=== PATIENT | female | born 1950 ===

== ENCOUNTER → 2023-01-26 | Outpatient (CLI) | payer OTHER ==
[2023-01-26 09:17] LABS: Basophils # (auto) 0.1 10 ^3/uL (0-0.2); Basophils % (auto) 0.6 % (0.0-2.0); Eosinophils # (auto) 0.6 10 ^3/uL (0-0.8); Eosinophils % (auto) 4.9 % (0.0-7.0); Hematocrit 35.8 % (36.0-46.0); Hemoglobin 11.4 g/dL (12.2-16.2); Lymphocytes # (auto) 4.1 10 ^3/uL (0.4-5.4); Lymphocytes % (auto) 31.8 % (10.0-50.0); Mean Corpuscular Hemoglobin 29.3 pg (28.0-32.0); Mean Corpuscular Volume 91.8 fL (80.0-100.0); Monocytes # (auto) 0.6 10 ^3/uL (0-1.3); Monocytes % (auto) 4.7 % (0.0-12.0); Neutrophils # (auto) 7.4 10 ^3/uL (1.6-8.6); Nucleated Red Blood Cells % 0.2 %; Red Cell Distribution Width 15.5 % (11.8-14.3); White Blood Cell 12.9 10^3/uL (4.4-10.8)
[2023-01-26 09:50] LABS: Albumin 3.2 g/dL (3.4-5.0); Calcium 9.2 mg/dL (8.5-10.1); Potassium 4.2 mmol/L (3.5-5.1)
[2023-01-26 09:55] LABS: BUN/Creatinine Ratio 19.3 (10.0-20.0); Bilirubin, Total 0.3 mg/dL (0.2-1.0); Total Protein 8.5 g/dL (6.4-8.2)
== END | disposition home or self-care (01) ==
LOC: LAB 08:41
PROVIDERS: ATTEND Internal Medicine Endocrinology, Diabetes & Metabolism
DX: I12.9 Hypertensive chronic kidney disease with stage 1 through stage 4 chronic kidney disease, or unspecified chronic kidney disease (principal); E11.22 Type 2 diabetes mellitus with diabetic chronic kidney disease; N18.31 Chronic kidney disease, stage 3a; E11.69 Type 2 diabetes mellitus with other specified complication; E11.65 Type 2 diabetes mellitus with hyperglycemia; E03.9 Hypothyroidism, unspecified; M54.50 Low back pain, unspecified; D64.9 Anemia, unspecified; E66.01 Morbid (severe) obesity due to excess calories
CPT/HCPCS: 36415; 80053; 80061; 83036; 84439; 84443; 85025

== ENCOUNTER 2023-12-19 20:39 | Inpatient (IN) | payer OTHER ==
[~2023-12-19] VITALS: Ht 165.1 cm; Wt 128.4 kg
[2023-12-19 21:22] LABS: Basophils # (auto) 0.1 10 ^3/uL (0-0.2); Basophils % (auto) 0.8 % (0.0-2.0); Eosinophils # (auto) 0.5 10 ^3/uL (0-0.8); Eosinophils % (auto) 4.9 % (0.0-7.0); Hematocrit 39.2 % (36.0-46.0); Hemoglobin 12.6 g/dL (12.2-16.2); Lymphocytes # (auto) 3.4 10 ^3/uL (0.4-5.4); Lymphocytes % (auto) 31.2 % (10.0-50.0); Mean Corpuscular Hemoglobin 29.6 pg (28.0-32.0); Mean Corpuscular Volume 92.4 fL (80.0-100.0); Monocytes # (auto) 0.7 10 ^3/uL (0-1.3); Monocytes % (auto) 6.2 % (0.0-12.0); Neutrophils # (auto) 6.1 10 ^3/uL (1.6-8.6); Neutrophils % (auto) 56.9 % (37.0-80.0); Red Blood Cells 4.24 10^6/uL (4.0-5.20); Red Cell Distribution Width 15.6 % (11.8-14.3); White Blood Cell 10.8 10^3/uL (4.4-10.8)
[2023-12-19 21:37] LABS: INR 0.97 (0.9-1.15); Prothrombin Time 10.2 sec (9.3-11.8)
[2023-12-20 00:57] VITALS: PULSE 78; RESP 20; O2SAT 98
[2023-12-20] MEDS ORDERED: NITROGLYCERIN 0.4 MG SL TAB SL PRN (03:00)
[2023-12-20] MEDS ORDERED: DEXTROSE (50%) 50ML SYRG IV PRN ×2 (03:00→12:00)
[2023-12-20] MEDS ORDERED: ONDANSETRON HCL 4 MG/2 ML VIAL IV PRN (03:00)
[2023-12-20] MEDS ORDERED: MORPHINE SULFATE INJ 2 MG/ml SYRG IV PRN (03:00)
[2023-12-20 03:22] LABS: Chloride 107 mmol/L (98-107); Potassium 4.7 mmol/L (3.5-5.1); Sodium 136 mmol/L (136-145)
[2023-12-20 03:23] LABS: Anion Gap 9 (5-15); Calcium 9.9 mg/dL (8.7-10.4); Carbon Dioxide 20 mmol/L (20-30)
[2023-12-20 03:28] LABS: BUN/Creatinine Ratio 19.8 (10.0-20.0); Blood Urea Nitrogen 24 mg/dL (9-23); Glucose 246 mg/dL (74-106)
[2023-12-20] MEDS: LEVOTHYROXINE SODIUM 88 MCG TAB PO SCH (06:18)
[2023-12-20] MEDS: cloNIDine HCL 0.1 MG TAB PO SCH (06:19)
[2023-12-20] MEDS: ACCU-CHEK COMFORT CURVE STRIP VI SCH ×2 (06:20→17:00)
[2023-12-20] MEDS: InsuLIN REG 1unit/0.01ml Soln (100units/ml) SC SCH ×3 (06:21→22:27)
[2023-12-20] MEDS: MAGNESIUM SULFATE 1GM/100ML 100 ML IV SCH (06:46)
[2023-12-20 08:28] LABS: Basophils # (auto) 0.1 10 ^3/uL (0-0.2); Basophils % (auto) 0.8 % (0.0-2.0); Eosinophils # (auto) 0.6 10 ^3/uL (0-0.8); Eosinophils % (auto) 4.9 % (0.0-7.0); Hematocrit 36.9 % (36.0-46.0); Hemoglobin 11.7 g/dL (12.2-16.2); Lymphocytes # (auto) 3.8 10 ^3/uL (0.4-5.4); Mean Corpuscular Hemoglobin 29.1 pg (28.0-32.0); Mean Corpuscular Hgb Conc. 31.7 g/dL (32.0-36.0); Mean Corpuscular Volume 91.8 fL (80.0-100.0); Monocytes # (auto) 0.9 10 ^3/uL (0-1.3); Monocytes % (auto) 7.1 % (0.0-12.0); Neutrophils # (auto) 6.9 10 ^3/uL (1.6-8.6); Neutrophils % (auto) 56.2 % (37.0-80.0); Nucleated Red Blood Cells % 0.1 %; Red Blood Cells 4.03 10^6/uL (4.0-5.20); Red Cell Distribution Width 15.5 % (11.8-14.3); White Blood Cell 12.3 10^3/uL (4.4-10.8)
[2023-12-20 08:40] LABS: Triglycerides 116 mg/dL (< 150)
[2023-12-20 08:41] LABS: Alanine Aminotransferase 11 U/L (7-40); Albumin 3.9 g/dL (3.2-4.8); Alkaline Phosphatase 170 U/L (46-116); Anion Gap 5 (5-15); Aspartate Aminotransferase 11 U/L (13-40); BUN/Creatinine Ratio 19.2 (10.0-20.0); Blood Urea Nitrogen 20 mg/dL (9-23); Calcium 9.3 mg/dL (8.5-10.1); Carbon Dioxide 23 mmol/L (20-30); Chloride 109 mmol/L (98-107); Cholesterol 102 mg/dL (< 200); Glucose 194 mg/dL (74-106); LDL Cholesterol 48 mg/dL (< 100); LDL Cholesterol 50 mg/dL (< 100); Potassium 4.2 mmol/L (3.5-5.1); Sodium 137 mmol/L (136-145); Triglycerides 110 mg/dL (< 150)
[2023-12-20 08:42] LABS: Bilirubin, Total 0.5 mg/dL (0.2-1.0); Cholesterol 107 mg/dL (< 200); HDL Cholesterol 36 mg/dL (40-59); HDL Cholesterol 37 mg/dL (40-59); Total Protein 7.9 g/dL (5.7-8.2)
[2023-12-20 08:50] LABS: CRP High Sensitivity 1.85 mg/dL (<1.0)
[2023-12-20 09:17] LABS: Magnesium 1.5 mg/dL (1.6-2.6)
[2023-12-20] MEDS: ASPirin 81 mg TAB PO SCH (10:21)
[2023-12-20] MEDS: ALLOPURINOL 100 MG TAB PO SCH (10:22)
[2023-12-20] MEDS: amLODIPine BESYLATE 5 MG TAB PO SCH (10:22)
[2023-12-20] MEDS: ENOXAPARIN SOD 40 MG/0.4 ML SYRINGE SC SCH (10:23)
[2023-12-20 11:55] LABS: Urine Bacteria FEW /hpf (None Seen); Urine Blood Negative /uL (Negative); Urine Clarity Clear (Clear); Urine Color Colorless (Yellow); Urine Protein, UAD 1+ (Negative); Urine Specific Gravity 1.016 (1.001-1.035); Urine Urobilinogen Normal (Negative); Urine WBC 3 /hpf (0 - 5)
[2023-12-20] MEDS: SODIUM CHLORIDE 0.9% 500 ML IV ONE (12:00)
[2023-12-20 13:00] VITALS: BP 148/53; PULSE 81; RESP 17; TEMP 98.3; O2SAT 97
[2023-12-20] MEDS: ACETAMINOPHEN 325 MG TAB PO PRN (13:08)
[2023-12-20] MEDS: INSULIN LANTUS (GLARGINE) 1 /0.01ml (100units/ml) SC ONE (13:09)
[2023-12-20 13:21] VITALS: BP 148/53; PULSE 83; RESP 17; TEMP 98.3; O2SAT 97
[2023-12-20 17:00] VITALS: BP 128/68; PULSE 82; RESP 14; TEMP 98; O2SAT 92
[2023-12-20 20:00] VITALS: PULSE 108; PULSE 87; RESP 20; O2SAT 97
[2023-12-20 21:00] VITALS: BP 147/70; PULSE 87; RESP 20; TEMP 98; O2SAT 97
[2023-12-20] MEDS: ATORVASTATIN 20 MG TAB PO SCH (22:17)
[2023-12-21] VITALS (11 sets, daily range): BP systolic 123–176; BP diastolic 63–83; PULSE 80–97; RESP 12–20; TEMP 98.1–98.7; O2SAT 95–100
[2023-12-21] MEDS: INSULIN LANTUS (GLARGINE) 1 /0.01ml (100units/ml) SC SCH (05:52)
[2023-12-21 06:54] LABS: Basophils # (auto) 0.1 10 ^3/uL (0-0.2); Basophils % (auto) 0.7 % (0.0-2.0); Eosinophils # (auto) 0.5 10 ^3/uL (0-0.8); Eosinophils % (auto) 4.5 % (0.0-7.0); Hematocrit 34.9 % (36.0-46.0); Hemoglobin 11.4 g/dL (12.2-16.2); Lymphocytes # (auto) 3.5 10 ^3/uL (0.4-5.4); Lymphocytes % (auto) 31.1 % (10.0-50.0); Mean Corpuscular Hemoglobin 29.8 pg (28.0-32.0); Mean Corpuscular Hgb Conc. 32.5 g/dL (32.0-36.0); Mean Corpuscular Volume 91.6 fL (80.0-100.0); Monocytes # (auto) 0.8 10 ^3/uL (0-1.3); Monocytes % (auto) 6.9 % (0.0-12.0); Neutrophils # (auto) 6.4 10 ^3/uL (1.6-8.6); Neutrophils % (auto) 56.8 % (37.0-80.0); Nucleated Red Blood Cells % 0.1 %; Red Blood Cells 3.81 10^6/uL (4.0-5.20); Red Cell Distribution Width 15.6 % (11.8-14.3); White Blood Cell 11.2 10^3/uL (4.4-10.8)
[2023-12-21 07:05] LABS: Calcium 9.3 mg/dL (8.7-10.4); Chloride 108 mmol/L (98-107); Potassium 4.4 mmol/L (3.5-5.1); Sodium 135 mmol/L (136-145)
[2023-12-21 07:06] LABS: Anion Gap 5 (5-15); Carbon Dioxide 22 mmol/L (20-30)
[2023-12-21 07:11] LABS: BUN/Creatinine Ratio 19.5 (10.0-20.0); Blood Urea Nitrogen 26 mg/dL (9-23); Glucose 242 mg/dL (74-106)
[2023-12-21 07:12] LABS: Magnesium 1.5 mg/dL (1.6-2.6)
[2023-12-21] MEDS: LIDOCAINE 2%HCL (LOCAL ANESTH.) INJ 20ML MDV ONE ×2 (08:20→10:13)
[2023-12-21] MEDS: IODIXANOL 320MG/ML 100ML BTL IV ONE ×2 (08:20→10:13)
[2023-12-21] MEDS: fentaNYL CITRATE 100 MCG/2 ML VL ONE (10:13)
[2023-12-21] MEDS: VERAPAMIL 2.5MG/ML INJ 2ML VIAL IV ONE (10:13)
[2023-12-21] MEDS: ANGIOMAX 250 MG VIAL IV ONE (10:13)
[2023-12-21] MEDS: SODIUM CHL 0.9% 0 ML ONE (10:13)
[2023-12-21] MEDS: HEPARIN SODIUM (PORCINE) 5000 UNITS/ML 1ML VIAL ONE (10:13)
[2023-12-21] MEDS: MIDAZOLAM HCL 2MG/2ML 2ml VIAL (1mg/ml) ONE (10:13)
[2023-12-21] MEDS: hydrALAZINE HCL 20 MG/ML VL IV PRN (13:25)
[2023-12-21] MEDS ORDERED: ATOR20TA50 PO (13:35)
[2023-12-21] MEDS ORDERED: AMLO1TAB23 PO (13:35)
[2023-12-21] MEDS ORDERED: ASPI-325 PO (13:35)
[2023-12-21] MEDS: MAGNESIUM SULFATE 1GM/100ML 100 ML IV SCH (14:13)
[2023-12-21] MEDS ORDERED: LISI-275 PO (15:01)
[2023-12-21] MEDS ORDERED: MET25T PO (15:01)
[2023-12-21] MEDS: METOPROLOL TARTRATE 25 MG TAB PO ONE (16:06)
[2023-12-21] MEDS ORDERED: ATORVASTATIN 20 MG TAB PO SCH (22:00)
[2023-12-21] MEDS ORDERED: METOPROLOL TARTRATE 25 MG TAB PO SCH (22:00)
[2023-12-21] MEDS ORDERED: INSULIN LANTUS (GLARGINE) 1 /0.01ml (100units/ml) SC SCH (22:00)
[2023-12-22 08:54] LABS: Hepatitis B Surface Antigen Negative (Negative)
[2023-12-22 09:16] LABS: Hepatitis C Antibody Negative (Negative)
[2023-12-22] MEDS ORDERED: LISINOPRIL 5 MG TAB PO SCH (10:00)
== END 2023-12-21 19:59 | disposition home or self-care (01) | DRG 286 ==
LOC: EDBD 20:39 → ER 20:39 → TELE 12-20 02:54 → TELE-CENTR 12-20 11:00
PROVIDERS: ADMIT Internal Medicine; ATTEND Internal Medicine
PROC: 4A023N7 Measurement of Cardiac Sampling and Pressure, Left Heart, Percutaneous Approach (ICD-10-PCS; principal; 2023-12-21)
PROC: B211YZZ Fluoroscopy of Multiple Coronary Arteries using Other Contrast (ICD-10-PCS; 2023-12-21)
DX: I25.110 Atherosclerotic heart disease of native coronary artery with unstable angina pectoris (principal); I50.31 Acute diastolic (congestive) heart failure; N17.0 Acute kidney failure with tubular necrosis; I16.1 Hypertensive emergency; R65.10 Systemic inflammatory response syndrome (SIRS) of non-infectious origin without acute organ dysfunction; I13.0 Hypertensive heart and chronic kidney disease with heart failure and stage 1 through stage 4 chronic kidney disease, or unspecified chronic kidney disease; Z68.42 Body mass index [BMI] 45.0-49.9, adult; E66.01 Morbid (severe) obesity due to excess calories; E83.42 Hypomagnesemia; E11.22 Type 2 diabetes mellitus with diabetic chronic kidney disease; E78.5 Hyperlipidemia, unspecified; N18.9 Chronic kidney disease, unspecified; E03.9 Hypothyroidism, unspecified; J45.909 Unspecified asthma, uncomplicated; Z86.718 Personal history of other venous thrombosis and embolism; Z79.4 Long term (current) use of insulin; Z90.710 Acquired absence of both cervix and uterus
CPT/HCPCS: 36415; 71045; 80048; 80053; 80061; 81001; 82962; 83036; 83735; 83880; 84439; 84443; 84484; 85025; 85379; 85610; 85730; 86141; 86803; 86850; 86900; 86901; 87340; 93005; 93306; 93458; 93970; 99152; G0378; J1815; J2250; Q9967

== ENCOUNTER 2025-01-16 01:26 | Emergency (ER) | payer MEDICARE, OTHER ==
[~2025-01-16] VITALS: Ht 165.1 cm; Wt 127.0 kg
[~2025-01-16 01:26] MED LIST: AMLO1TAB23 PO; ASPI-325 PO; ATOR20TA50 PO; LISI-275 PO; MET25T PO
--- NOTE | 2025-01-16 01:42 | ED.PDOC ---
History of Present Illness HPI Comments 74-year-old female presents with a chief complaint of shakiness. Patient states that she was feeling very shaky and decided to call 911. Per EMS, patients blood sugar was 29 and they gave her oral glucose. Patient mentions that she took her medications, but states that she did not eat today. No other symptoms or modifying factors present at this time. Time Seen by MD: 01:40 Reviewed Notes: Medications, Allergies Allergies: Coded Allergies: NO KNOWN ALLERGIES (Unverified , 12/19/23) Home Meds Active Scripts Metoprolol Tartrate (Lopressor) 25 Mg Tb, 12.5 MG PO BID for 30 Days, #30 TAB 1 Refill Prov:HEATHER WHITE [facility] 12/21/23 Lisinopril (Lisinopril) 5 Mg Tab, 5 MG PO DAILY for 30 Days, #30 TAB 1 Refill Prov:HEATHER WHITE [facility] 12/21/23 Atorvastatin Calcium (ATORVASTATIN CALCIUM) 20 Mg Tab, 40 MG PO HS for 30 Days, #60 TAB 1 Refill Prov:HEATHER WHITE [facility] 12/21/23 Aspirin (Aspirin Low Dose) 81 Mg Tab, 81 MG PO DAILY for 30 Days, #30 TAB 2 Refills Prov:HEATHER WHITE [facility] 12/21/23 Amlodipine Besylate (Amlodipine Besylate) 10 Mg Tab, 1 TAB PO DAILY for 30 Days, #30 TAB 2 Refills Prov:HEATHER WHITE [facility] 12/21/23 Information Source: Patient, Emergency Med Personnel Mode of Arrival: EMS Severity: Moderate Timing: Hours Duration: Since onset Prehospital treatment: Unix Analyst, Treatment (Oral Glucose) Past Medical History PAST MEDICAL HISTORY: Asthma, DM, HTN Surgical History: Denies all surgeries 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 Family History Family History: Reviewed,noncontributory to illness Social History Smoker: Non-Smoker Alcohol: Denies ETOH Use Drugs: Denies Drug Use Lives In: Home Constitutional: reports: others (SHAKINESS); denies: chills, diaphoresis, fatigue, fever, malaise, sweats, weakness EENTM: denies: blurred vision, double vision, ear bleeding, ear discharge, ear drainage, ear pain, ear ringing, eye pain, eye redness, hearing loss, mouth pain, mouth swelling, nasal discharge, nose bleeding, nose congestion, nose pain, photophobia, tearing, throat pain, throat swelling, voice changes, others Respiratory: denies: cough, hemoptysis, orthopnea, SOB at rest, shortness of breath, SOB with excertion, stridor, wheezing, others Cardiovascular: denies: chest pain, dizzy spells, diaphoresis, Dyspnea on exertion, edema, irregular heart beat, left arm pain, lightheadedness, palpitations, PND, syncope, others Gastrointestinal: denies: abdomen distended, abdominal pain, blood streaked bowels, constipated, diarrhea, dysphagia, difficulty swallowing, hematemesis, melena, nausea, poor appetite, poor fluid intake, rectal bleeding, rectal pain, vomiting, others Genitourinary: denies: abnormal vagina bleeding, burning, dyspareunia, dysuria, flank pain, frequency, hematuria, incontinence, pain, , vagina discharge, urgency, others Neurological: denies: dizziness, fainting, headache, left sided numbness, left sided weakness, numbness, paresthesia, pre-existing deficit, right sided numbness, right sided weakness, seizure, speech problems, tingling, tremors, weakness, others Musculoskeletal: denies: back pain, gout, joint pain, joint swelling, muscle pain, muscle stiffness, neck pain, others Integumetry: denies: bruises, change in color, change in hair/nails, dryness, laceration, lesions, lumps, rash, wounds, others Allergic/Immunocompromised: denies: Difficulty Healing, Frequent Infections, H terence, Itching, others Hematologic/Lymphatic: denies: anemia, blood clots, easy bleeding, easy bruising, swollen glands, others Endocrine: denies: excessive hunger, excessive sweating, excessive thirst, excessive urination, flushing, intolerance to cold, intolerance to heat, unexplained weight gain, unexplained weight loss, others Psychiatric: denies: anxiety, bipolar disorder, depression, hopeless, panic disorder, schizophrenia, sleepless, suicidal, others All Other Systems: Reviewed and Negative Physical Exam General Appearance: No Apparent Distress, Normal HEENT: Normal ENT Inspection, Pharynx Normal, TMs Normal Neck: Full Range of Motion, Non-Tender, Normal, Normal Inspection Respiratory: Chest Non-Tender, Lungs Clear, No Accessory Muscle Use, No Respiratory Distress, Normal Breath Sounds Cardiovascular: No Edema, No JVD, No Murmur, No Gallop, Normal Peripheral Pulses, Regular Rate/Rhythm Breast Exam: Deferred Gastrointestinal: No Organomegaly, Non Tender, No Pulsatile Mass, Normal Bowel Sounds, Soft Genitalia: Deferred Pelvic: Deferred Rectal: Deferred Extremities: No calf tenderness, Normal capillary refill, Normal inspection, Normal range of motion, Non-tender, No pedal edema Musculoskeletal : Apperance: Normal Neurologic: Alert, dramatic coach II-XII nml as Tested, No Motor Deficits, Normal Affect, Normal Mood, No Sensory Deficits Cerebellar Function: Normal Reflexes: Normal Skin: Dry, Normal Color, Warm Lymphatic: No Adenopathy Was a procedure done? Was a procedure done?: No Differential Dx Considerations may include: Medication reaction, viral syndrome, electrolyte abnormality X-Ray, Labs, Meds, VS Vital Signs Date Time Temp Pulse Resp B/P (MAP) Pulse Ox O2 Delivery O2 Flow Rate FiO2 01/16/25 03:09 105 20 96 Room Air* 0 21 01/16/25 03:00 98.5 105 20 157/92 (113) 96 98.5 01/16/25 01:48 98.5 111 18 117/113 (114) 96 98.5 Lab Test 01/16/25 03:02 01/16/25 02:54 01/16/25 02:36 01/16/25 02:15 Range/Units Troponin I High Sensitivity 13 12 </=34 ng/L POC Glucose 205 H 70-106 mg/dl Urine Color Colorless Yellow Urine Clarity Clear Clear Urine pH 5.5 5.0-9.0 Urine Specific [place] 1.009 1.001-1.035 Urine Protein 1+ H Negative Urine Ketones Negative Negative Urine Blood Negative Negative /uL Urine Nitrite Negative Negative Urine Bilirubin Negative Negative Urine Urobilinogen Normal Negative mg/dL Urine Leukocyte Esterase Negative Negative /uL Urine RBC <1 0 - 4 /hpf Urine Microscopic WBC 1 0-5 /HPF Urine Squamous Epithelial Cells Few <5 /hpf Urine Bacteria None seen None Seen /hpf Urine Glucose Normal Normal mg/dL White Blood Count 11.3 H 4.4-10.8 10^3/uL Red Blood Count 4.01 4.0-5.20 10^6/uL Hemoglobin 11.7 L 12.2-16.2 g/dL Hematocrit 36.5 36.0-46.0 % Mean Corpuscular Volume 91.1 80.0-100.0 fL Mean Corpuscular Hemoglobin 29.2 28.0-32.0 pg Mean Corpuscular Hemoglobin Concent 32.1 32.0-36.0 g/dL Red Cell Distribution Width 17.7 H 11.8-14.3 % Platelet Count 303 140-450 10^3/uL Mean Platelet Volume 9.0 6.9-10.8 fL Neutrophils (%) (Auto) 71.0 37.0-80.0 % Lymphocytes (%) (Auto) 17.0 10.0-50.0 % Monocytes (%) (Auto) 7.1 0.0-12.0 % Eosinophils (%) (Auto) 4.1 0.0-7.0 % Basophils (%) (Auto) 0.8 0.0-2.0 % Neutrophils # (Auto) 8.0 1.6-8.6 10 ^3/uL Lymphocytes # (Auto) 1.9 0.4-5.4 10 ^3/uL Monocytes # (Auto) 0.8 0-1.3 10 ^3/uL Eosinophils # (Auto) 0.5 0-0.8 10 ^3/uL Basophils # (Auto) 0.1 0-0.2 10 ^3/uL Nucleated Red Blood Cells 0.0 % Sodium Level 139 136-145 mmol/L Potassium Level 4.9 3.5-5.1 mmol/L Chloride Level 111 H 98-107 mmol/L Carbon Dioxide Level 21 20-31 mmol/L Anion Gap 7 5-15 Blood Urea Nitrogen 26 H 9-23 mg/dL Creatinine 1.35 H 0.550-1.02 mg/dL Glomerular Filtration Rate Calc 41 >90 mL/min BUN/Creatinine Ratio 19.3 10.0-20.0 Serum Glucose 191 H 74-106 mg/dL Calcium Level 9.7 8.7-10.4 mg/dL B-Type Natriuretic Peptide 43.42 0-100 pg/mL Current Medications Medications (Trade) Dose Ordered Sig/Jairon Route Start Time Stop Time Status Last Admin Acetaminophen (Tylenol Tablet) 650 mg ONCE ONCE PO 01/16/25 04:00 01/16/25 04:01 DC 01/16/25 04:03 Time of 1ST Reevaluation: 02:10 Reevaluation 1ST: Unchanged Patient Education/Counseling: Diagnosis, Treatment Family Education/Counseling: No Family Present Departure 1 Departure Time of Disposition: 04:15 (Patient had a hypoglycemic episode in the setting of taking her medication without eating. Patient is now hemodynamically stable feeling well and like to go home. We will discharge patient home with outpatient follow up) Impression: Primary Impression: Hypoglycemia Disposition: 01 HOME / SELF CARE / HOMELESS Condition: Stable Additional Instructions: It is important to take your medications regularly and eat meals with them. You should follow up with the regular doctor this week. Discharged With: Self Critical Care Note Critical Care Time?: No Stability Stability form required: No Heart Score Heart Score: Heart Score Response (Comments) Value History N/A 0 EKG N/A 0 Age N/A 0 Risk Factors N/A 0 Troponin N/A 0 Total 0 I personally scribed for GALLITO JONES MD ([email or web address]) on 01/16/25 at 01:42. Electronically submitted by Tyree Montoya ([email or web address]). GALLITO JONES MD Jan 16, 2025 01:42
[2025-01-16 02:41] LABS: Basophils # (auto) 0.1 10 ^3/uL (0-0.2); Basophils % (auto) 0.8 % (0.0-2.0); Eosinophils # (auto) 0.5 10 ^3/uL (0-0.8); Eosinophils % (auto) 4.1 % (0.0-7.0); Hematocrit 36.5 % (36.0-46.0); Hemoglobin 11.7 g/dL (12.2-16.2); Lymphocytes # (auto) 1.9 10 ^3/uL (0.4-5.4); Mean Corpuscular Hemoglobin 29.2 pg (28.0-32.0); Mean Corpuscular Hgb Conc. 32.1 g/dL (32.0-36.0); Mean Corpuscular Volume 91.1 fL (80.0-100.0); Monocytes # (auto) 0.8 10 ^3/uL (0-1.3); Monocytes % (auto) 7.1 % (0.0-12.0); Platelet Count (auto) 303 10^3/uL (140-450); Red Blood Cells 4.01 10^6/uL (4.0-5.20); Red Cell Distribution Width 17.7 % (11.8-14.3); White Blood Cell 11.3 10^3/uL (4.4-10.8)
--- NOTE | 2025-01-16 02:43 | DVH ---
CHEST RADIOGRAPH Indication: hypoglycemia Technique: Single frontal view of the chest was obtained Comparison: XY CHEST PORTABLE on DOS: 12/19/23 IMPRESSION: The heart is moderately enlarged. No sizable effusion or pneumothorax. Moderate pulmonary vascular c ongestion.
[2025-01-16 02:45] LABS: Potassium 4.9 mmol/L (3.5-5.1); Sodium 139 mmol/L (136-145)
[2025-01-16 02:46] LABS: Anion Gap 7 (5-15); Carbon Dioxide 21 mmol/L (20-31)
[2025-01-16 02:47] LABS: Calcium 9.7 mg/dL (8.7-10.4)
[2025-01-16 02:51] LABS: BUN/Creatinine Ratio 19.3 (10.0-20.0)
[2025-01-16 02:57] LABS: Urine Bacteria None Seen /hpf (None Seen)
[2025-01-16 02:57] LABS: Blood Urea Nitrogen 26 mg/dL (9-23); Chloride 111 mmol/L (98-107); Glucose 191 mg/dL (74-106)
[2025-01-16 03:06] LABS: Urine Blood Negative /uL (Negative); Urine Clarity Clear (Clear); Urine Color Colorless (Yellow); Urine Protein, UAD 1+ (Negative); Urine Specific Gravity 1.009 (1.001-1.035); Urine Squamous Epithelial Cell FEW /hpf (<5); Urine Urobilinogen Normal (Negative); Urine WBC 1 /HPF (0-5); Urine pH 5.5 (5.0-9.0)
[2025-01-16 03:09] VITALS: PULSE 105; RESP 20; O2SAT 96
[2025-01-16] MEDS: ACETAMINOPHEN 325 MG TAB PO ONE (04:03)
[2025-01-16 05:06] VITALS: BP 147/73; PULSE 87; RESP 16; TEMP 98; O2SAT 96
== END 2025-01-16 05:07 | disposition home or self-care (01) ==
LOC: ER 01:26 → EDBD 01:26 → ER 05:07
DX: E11.649 Type 2 diabetes mellitus with hypoglycemia without coma (principal); I10 Essential (primary) hypertension; J45.909 Unspecified asthma, uncomplicated; Z79.82 Long term (current) use of aspirin; Z79.899 Other long term (current) drug therapy
CPT/HCPCS: 36415; 71045; 80048; 81001; 82947; 82962; 83880; 84484; 85025

== ENCOUNTER 2025-09-14 11:48 | Emergency (ER) | payer OTHER ==
[~2025-09-14] VITALS: Ht 165.1 cm; Wt 136.0 kg
--- NOTE | 2025-09-14 12:18 | ECG ---
[facility] Test Date: 2025-09-14 Test Time: 11:53:59 Pat Name: GILBERTO MACHADO Department: [facility] ED Room: Gender: F Manager Of Corporate: francoise : 1950 Requested By: EMERGENCY EMERGENCY Order Number: [id number] Reading MD: Gilson Hendrix Measurements Intervals [place] Rate: 99 P: 59 AK: 170 QRS: -22 QRSD: 107 T: 53 QT: 369 QTc: 474 Interpretive Statements Sinus rhythm Borderline left axis deviation Electronically Signed On 09-19-2025 17:34:09 PST by Gilson Hendrix Please click the below link to view image of tracing.
--- NOTE | 2025-09-14 12:47 | ED.PDOC ---
History of present illness HPI Comments 74 y.o female with PMHx of DM and HTN, presents to the ED via EMS for an evaluation of AMS. EMS reports patient lives with son who is her primary caregiver. Son reported hearing weird noises coming from patient's room and when he went up to check on her, he noticed she was altered. Patient has had a decreased appetite and dark/foul/cloudy urine per son. EMS noted BG of 50 on scene, gave 2 tube or oral glucose which brought BG to 107 but went back down to 57 upon arrival. Patient is able to state her name and mentions taking insulin with compliance to all medication, however no further information obtained from her. Patient is bedbound as she has a bad knee and son assists her from bed to wheelchair. No other symptoms reported at this time. Chief Complaint: Hypoglycemia Time Seen by MD: 12:05 History of present illness: Nurses Notes, Intelligence Engineer Notes, Medications, Allergies Allergies: Coded Allergies: NO KNOWN ALLERGIES (Unverified , 12/19/23) Home Meds Active Scripts Metoprolol Tartrate (Lopressor) 25 Mg Tb, 12.5 MG PO BID for 30 Days, #30 TAB 1 Refill Prov:HEATHER WHITE RESIDENT 12/21/23 Lisinopril (Lisinopril) 5 Mg Tab, 5 MG PO DAILY for 30 Days, #30 TAB 1 Refill Prov:HEATHER WHITE RESIDENT 12/21/23 Atorvastatin Calcium (ATORVASTATIN CALCIUM) 20 Mg Tab, 40 MG PO HS for 30 Days, #60 TAB 1 Refill Prov:HEATHER WHITE RESIDENT 12/21/23 Aspirin (Aspirin Low Dose) 81 Mg Tab, 81 MG PO DAILY for 30 Days, #30 TAB 2 Refills Prov:HEATHER WHITE RESIDENT 12/21/23 Amlodipine Besylate (Amlodipine Besylate) 10 Mg Tab, 1 TAB PO DAILY for 30 Days, #30 TAB 2 Refills Prov:HEATHER WHITE RESIDENT 12/21/23 Information Source: Emergency Med Personnel Mode of Arrival: EMS Timing: Hours Duration: Since onset Prehospital treatment: Accucheck (50 with 107 repeat s/p glucose given ), Treatment (2 tube oral glucose ) [place]: Confusion Symptoms: Confusion, Eating poorly History of: Diabetes, Insulin use Modifying factors: Nothing Associated signs and symptoms: Other Past Medical History PAST MEDICAL HISTORY: Asthma, DM, HTN Surgical History: Denies all surgeries 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 Family History Family History: Reviewed,noncontributory to illness Social History Smoker: Non-Smoker Alcohol: Denies ETOH Use Drugs: Denies Drug Use Lives In: Home Unable to Obtain due to: Altered Mental Status Physical Exam General Appearance: Moderate Distress, Obese HEENT: Normal ENT Inspection, Pharynx Normal, TMs Normal Neck: Full Range of Motion, Non-Tender, Normal, Normal Inspection Respiratory: Chest Non-Tender, Lungs Clear, No Accessory Muscle Use, No Respiratory Distress, Normal Breath Sounds Cardiovascular: No Edema, No JVD, No Murmur, No Gallop, Normal Peripheral Pulses, Regular Rate/Rhythm Breast Exam: Deferred Gastrointestinal: No Organomegaly, Non Tender, No Pulsatile Mass, Normal Bowel Sounds, Soft Genitalia: Deferred Pelvic: Deferred Rectal: Deferred Extremities: No calf tenderness Musculoskeletal : Apperance: Normal Neurologic: Alert Cerebellar Function: NOT DONE Reflexes: NOT DONE Skin: Normal Color Peripheral Pulses: 3+ Radial (R), 3+ Radial (L) Lymphatic: No Adenopathy Was a procedure done? Was a procedure done?: No Differential Diagnosis (DM) Differential Diagnosis: Dehydration, Electrolyte Abnormality, Hypoglycemia, UTI X-Ray, Labs, Meds, VS Vital Signs Date Time Temp Pulse Resp B/P (MAP) Pulse Ox O2 Delivery O2 Flow Rate FiO2 09/14/25 13:04 87 20 97 Room Air* 0 21 09/14/25 13:04 98.3 87 20 149/65 (93) 97 98.3 09/14/25 12: 97.9 104 16 118/82 99 97.9 09/14/25 11:53 99 Lab Test 09/14/25 14:22 09/14/25 14:00 Range/Units Urine Color Light-yellow Yellow Urine Clarity Clear Clear Urine pH 5.5 5.0-9.0 Urine Specific [place] 1.013 1.001-1.035 Urine Protein Trace H Negative Urine Ketones Negative Negative Urine Blood Negative Negative /uL Urine Nitrite Negative Negative Urine Bilirubin Negative Negative Urine Urobilinogen Normal Negative mg/dL Urine Leukocyte Esterase Negative Negative /uL Urine RBC None seen 0 - 4 /hpf Urine Microscopic WBC 1 0-5 /HPF Urine Squamous Epithelial Cells Few <5 /hpf Urine Bacteria None seen None Seen /hpf Urine Glucose Normal Normal mg/dL White Blood Count 10.0 4.4-10.8 10^3/uL Red Blood Count 3.89 L 4.0-5.20 10^6/uL Hemoglobin 11.5 L 12.2-16.2 g/dL Hematocrit 35.4 L 36.0-46.0 % Mean Corpuscular Volume 91.0 80.0-100.0 fL Mean Corpuscular Hemoglobin 29.6 28.0-32.0 pg Mean Corpuscular Hemoglobin Concent 32.5 32.0-36.0 g/dL Red Cell Distribution Width 14.1 11.8-14.3 % Platelet Count 288 140-450 10^3/uL Mean Platelet Volume 8.0 6.9-10.8 fL Neutrophils (%) (Auto) 69.1 37.0-80.0 % Lymphocytes (%) (Auto) 21.4 10.0-50.0 % Monocytes (%) (Auto) 7.1 0.0-12.0 % Eosinophils (%) (Auto) 1.7 0.0-7.0 % Basophils (%) (Auto) 0.7 0.0-2.0 % Neutrophils # (Auto) 6.9 1.6-8.6 10 ^3/uL Lymphocytes # (Auto) 2.1 0.4-5.4 10 ^3/uL Monocytes # (Auto) 0.7 0-1.3 10 ^3/uL Eosinophils # (Auto) 0.2 0-0.8 10 ^3/uL Basophils # (Auto) 0.1 0-0.2 10 ^3/uL Nucleated Red Blood Cells 0.0 % Sodium Level 141 136-145 mmol/L Potassium Level 5.1 3.5-5.1 mmol/L Chloride Level 110 H 98-107 mmol/L Carbon Dioxide Level 20 20-31 mmol/L Anion Gap 11 5-15 Blood Urea Nitrogen 31 H 9-23 mg/dL Creatinine 1.42 H 0.550-1.02 mg/dL Glomerular Filtration Rate Calc 39 >90 mL/min BUN/Creatinine Ratio 21.8 H 10.0-20.0 Serum Glucose 118 H 74-106 mg/dL Calcium Level 9.0 8.7-10.4 mg/dL Troponin I High Sensitivity 8 </=34 ng/L Current Medications Medications (Trade) Dose Ordered Sig/Jairon Route Start Time Stop Time Status Last Admin Ceftriaxone Sodium 50 ml @ 100 mls/hr ONCE ONCE IV 09/14/25 16:00 09/14/25 16:29 09/14/25 16:13 Patient alert. Saturation pristine on room air. She is obese. History of hypertension. History of diabetes. She has been eating in the last few days. Has been taking her insulin. Possible urosepsis. WBC within normal limits. Sugar normalized. No acute process. No leg swelling. No shortness a breath. No chest pain. No head injury. Explained to the patient. Was told to follow up with her primary care physician. Was told to come back if there is any problem. Time of 1ST Reevaluation: 12:42 Reevaluation 1ST: Unchanged Patient Education/Counseling: Other (A&O x 2 ) Family Education/Counseling: No Family Present SEPSIS Sepsis Screen Date sepsis recognized/suspect: Sep 14, 2025 Time Sepsis recognized/suspect: 1150 Recent Procedure: No On Antibiotic Therapy: No Respiratory Rate >20: No Heart Rate >90: Yes Temp<36 C (96.8 F) or >38.3 C: No SBP <90 or MAP <65 mmHG: No New Acute Mental Status Change: No Is the patient on CPAP, BIPAP,: No Physician Orders Chest Portable (09/14/25 12:55) Insert/Manage Urinary Catheter QSHIFT (09/14/25 14:31) Urine Bacterial Culture (09/14/25 14:31) Ceftriaxone 1gm/50ml (Rocephin) (09/14/25 16:00) Vital Signs Date Time Temp Pulse Resp B/P (MAP) Pulse Ox O2 Delivery O2 Flow Rate FiO2 09/14/25 13:04 87 20 97 Room Air* 0 21 09/14/25 13:04 98.3 87 20 149/65 (93) 97 98.3 09/14/25 12: 97.9 104 16 118/82 99 97.9 09/14/25 11:53 99 Laboratory Tests Test 09/14/25 14:00 White Blood Count 10.0 10^3/uL (4.4-10.8) Medications Medications Dose Ordered Sig/Jairon Route Start Time Stop Time Status Last Admin Dose Admin Ceftriaxone Sodium 50 ml @ 100 mls/hr ONCE ONCE IV 09/14/25 16:00 09/14/25 16:29 09/14/25 16:13 Departure 1 Departure Time of Disposition: 12:58 Impression: Primary Impression: Uncontrolled diabetes mellitus Qualified Codes: E13.649 - Other specified diabetes mellitus with hypoglycemia without coma Additional Impression: Indwelling urinary catheter present Disposition: HOME / SELF CARE / HOMELESS Condition: Good e-Prescriptions Nitrofurantoin Monohydrate Mac (Macrobid) 100 Mg Cap 100 MG PO BID for 5 Days, #10 CAP Prov: TRISTAN REIS MD 09/14/25 Discharged With: Self Critical Care Note Critical Care Time?: No Stability Stability form required: No I personally scribed for TRISTAN REIS MD ([email or web address]) on 09/14/25 at 12:47. Electronically submitted by Ciara Blanc ([facility]). TRISTAN REIS MD Sep 14, 2025 12:47
[2025-09-14 13:04] VITALS: PULSE 87; RESP 20; O2SAT 97
--- NOTE | 2025-09-14 14:04 | DVH ---
EXAM: XY CHEST PORTABLE CLINICAL HISTORY: sob TECHNIQUE: Single AP view of the chest WID: COMPARISON: XY CHEST PORTABLE on DOS: 01/16/25 FINDINGS: Lines and tubes: None Chest: Cardiomegaly with pulmonary vascular congestion. Calcified plaque projects over the aortic arch. No pleural effusion, pneumothorax, or consolidation. The osseous structures are grossly intact. IMPRESSION: 1. Cardiomegaly and pulmonary vascular congestion.
[2025-09-14 14:09] LABS: Hematocrit 35.4 % (36.0-46.0); Hemoglobin 11.5 g/dL (12.2-16.2); Mean Corpuscular Hemoglobin 29.6 pg (28.0-32.0); Mean Corpuscular Volume 91.0 fL (80.0-100.0); Nucleated Red Blood Cells % 0.0 %
[2025-09-14 14:22] LABS: Potassium 5.1 mmol/L (3.5-5.1); Sodium 141 mmol/L (136-145)
[2025-09-14 14:23] LABS: Anion Gap 11 (5-15)
[2025-09-14 14:24] LABS: Calcium 9.0 mg/dL (8.7-10.4); Carbon Dioxide 20 mmol/L (20-31); Chloride 110 mmol/L (98-107)
[2025-09-14 14:28] LABS: BUN/Creatinine Ratio 21.8 (10.0-20.0)
[2025-09-14 14:34] LABS: Blood Urea Nitrogen 31 mg/dL (9-23); Glucose 118 mg/dL (74-106)
[2025-09-14 15:06] LABS: Urine Protein, UAD TRACE (Negative)
[2025-09-14] MEDS: cefTRIAXone SOD 1,000 MG VL ONE (16:13)
[2025-09-14] MEDS ORDERED: NITR-87 PO (16:15)
[2025-09-14 16:18] VITALS: BP 160/82; PULSE 85; RESP 18; TEMP 98.3; O2SAT 98
== END 2025-09-14 16:49 | disposition home or self-care (01) ==
LOC: EDUNIT# 11:48 → ER 11:48 → EDBD 11:48 → ER 16:49
DX: R41.82 Altered mental status, unspecified (principal); E11.65 Type 2 diabetes mellitus with hyperglycemia; I10 Essential (primary) hypertension; E78.5 Hyperlipidemia, unspecified; J45.909 Unspecified asthma, uncomplicated; Z74.01 Bed confinement status; Z79.82 Long term (current) use of aspirin; Z79.899 Other long term (current) drug therapy
CPT/HCPCS: 36415; 71045; 80048; 81001; 82947; 84484; 85025; 87086; 93005; 96365; 99285; J0696